=== PATIENT | male | born 1995 | race African-American/Black ===

== ENCOUNTER 2018-06-01 00:19 | Emergency (ER) | payer SELFPAY ==
[~2018-06-01] VITALS: Ht 180.3 cm; Wt 97.5 kg
[~2018-06-01 00:19] MED LIST: CYCLOBENZAPRINE10 MG ORAL; IBUPROFEN600 MG ORAL; ROBAXIN-750750 MG PO; TESSALON PERLE100 M2 ORAL
[2018-06-01 00:32] VITALS: BP 126/89
[2018-06-01] MEDS: Bacitracin Oint UD TOPIC ONE (01:07)
[2018-06-01] MEDS: Tetanus/Diptheria/Pertussis Vaccine 0.5ml Syr IM ONE (01:08)
--- NOTE | 2018-06-01 01:14 | Emergency Room Report ---
History of Present Illness General Chief Complaint: Laceration Source: Patient Present Illness HPI Is a 23-year-old male with no past medical history. He presents with chief complaint of a puncture wound to his right index finger. Onset just prior to arrival. He was using a clean kitchen knife to take at the cork from the one bottle. It slipped and sustained a small puncture wound to the right index finger. He is a [id number]. No active bleeding. No other injury. Worse with palpation. Allergies: Coded Allergies: No Known Allergies (Unverified , 07/03/15) Patient History Past Medical History: none, see triage record, old chart reviewed Past Surgical History: none Pertinent Family History: none Social History: Reports: smoking Immunizations: other Reviewed Nursing Documentation: PMH: Agreed; PSxH: Agreed Nursing Documentation-PM Past Medical History: No History, Except For Hx Asthma: Yes Review of Systems Eye: Denies: eye pain, blurred vision ENT: Denies: ear pain, nose congestion, throat swelling Respiratory: Denies: cough, shortness of breath Cardiovascular: Denies: chest pain, palpitations Gastrointestinal: Denies: abdominal pain, diarrhea, nausea, vomiting Musculoskeletal: Denies: back pain, joint pain Skin: Denies: rash Neurological: Denies: headache, numbness Endocrine: Denies: increased thirst, increased urine Hematologic/Lymphatic: Denies: easy bruising All Other Systems: negative except mentioned in HPI Physical Exam Vital Signs Date Time Temp Pulse Resp B/P (MAP) Pulse Ox O2 Delivery O2 Flow Rate FiO2 06/01/18 00:20 98.8 94 18 122/78 96 Room Air vitals normal Sp02 EP Interpretation: reviewed, normal General Appearance: well appearing, no apparent distress, alert Head: normocephalic, atraumatic Eyes: bilateral eye PERRL, bilateral eye EOMI ENT: hearing grossly normal, normal pharynx Neck: full range of motion, supple, no meningismus Respiratory: chest non-tender, lungs clear, normal breath sounds Cardiovascular #1: regular rate, rhythm, no murmur Gastrointestinal: normal bowel sounds, non tender, no mass, no organomegaly, no bruit, non-distended Musculoskeletal: back normal, gait/station normal, normal range of motion, other - Right index finger: On the radial aspect, over the proximal phalanx laterally, there is a 2 mm puncture wound. No redness. No foreign body Psychiatric: mood/affect normal Skin: warm/dry Medical Decision Making Diagnostic Impression: Primary Impression: Puncture wound of finger of right hand Qualified Codes: S61.239A - Puncture wound without foreign body of unspecified finger without damage to nail, initial encounter ER Course Patient with a superficial puncture wound. No evidence of foreign body. No tendon laceration. Low risk for infection. We'll discharge home. Tetanus updated here. Last Vital Signs Date Time Temp Pulse Resp B/P (MAP) Pulse Ox O2 Delivery O2 Flow Rate FiO2 06/01/18 00:32 98.4 88 18 126/89 98 Room Air Status: improved Disposition: HOME, SELF-CARE Condition: Stable Referrals: NOT CHOSEN IPA/,REFERRING (PCP) Additional Instructions: Keep wound clean. Clean with hydroperoxide and then apply antibiotic ointment. Follow-up in a week for recheck. Return sooner if evidence of infection. Ortega Cordero MD Jun 01, 2018 01:13
[2018-06-01 01:23] VITALS: BP 126/89
== END 2018-06-01 01:24 | disposition home or self-care (01) ==
LOC: EMR 01:03
DX: S61.230A Puncture wound without foreign body of right index finger without damage to nail, initial encounter (principal); W26.0XXA Contact with knife, initial encounter; Y93.89 Activity, other specified; Y92.9 Unspecified place or not applicable; J45.909 Unspecified asthma, uncomplicated
CPT/HCPCS: 90471; 90715; 99283